=== PATIENT | female | born 1985 | race Caucasian/White ===

== ENCOUNTER 2020-08-09 18:10 | Emergency (ER) | payer MEDICAID ==
[~2020-08-09] VITALS: Ht 160 cm; Wt 67.1 kg
[2020-08-09 18:40] VITALS: Ht 160 cm; Wt 67.1 kg
[2020-08-09 20:42] VITALS: BP 120/74
== END 2020-08-09 20:42 | disposition home or self-care (01) ==
LOC: ED 18:10
DX: S61.412A Laceration without foreign body of left hand, initial encounter (principal); W26.8XXA Contact with other sharp object(s), not elsewhere classified, initial encounter; Y93.89 Activity, other specified; Y92.89 Other specified places as the place of occurrence of the external cause; Y99.8 Other external cause status
CPT/HCPCS: 90715; J2001